=== PATIENT | male | born 1955 | race Caucasian/White ===

== ENCOUNTER 2018-03-22 06:56 | Day surgery (SDC) | payer OTHER ==
[~2018-03-22] VITALS: Ht 175.3 cm; Wt 85.3 kg
[2018-03-22 07:22] VITALS: BP 168/83
[2018-03-22 12:18] VITALS: BP 165/89
== END 2018-03-22 10:50 | disposition home or self-care (01) ==
LOC: DS 06:56 → GI 08:30 → OR 08:45 → DS 10:50
PROVIDERS: Internal Medicine Gastroenterology
PROC: 0DBG8ZZ Excision of Left Large Intestine, Via Natural or Artificial Opening Endoscopic (ICD-10-PCS; principal; 2018-03-22 08:30)
DX: Z12.11 Encounter for screening for malignant neoplasm of colon (principal); D12.4 Benign neoplasm of descending colon; K57.90 Diverticulosis of intestine, part unspecified, without perforation or abscess without bleeding
CPT/HCPCS: 45378; 82962; J1200; J1610; J2250; J2310; J3010; J3490